=== PATIENT | male | born 1965 | race Caucasian/White ===

== ENCOUNTER 2018-07-19 14:22 | Emergency (ER) | payer OTHER ==
[~2018-07-19] VITALS: Ht 167.6 cm; Wt 72.6 kg
--- NOTE | 2018-07-19 15:59 | Diagnostic Imaging Report ---
EXAM: Right Lower Extremity Venous Duplex Ultrasound INDICATION: Evaluate for DVT COMPARISON: None TECHNIQUE: Thacker scale, color Doppler and spectral waveform analysis of the unilateral lower extremity deep venous system was performed. FINDINGS: Common Femoral vein: Fully compressible with normal spontaneous waveforms. Superficial Femoral vein vein: Fully compressible with normal spontaneous waveforms. Normal response to augmentation. Proximal Deep Femoral vein: Normal spontaneous waveforms. Popliteal: Fully compressible with normal spontaneous waveforms. Calf veins: The peroneal vein is not visualized. The posterior tibial veins are patent and demonstrate normal phasicity. IMPRESSION: No evidence of deep venous thrombosis in the right lower extremity. Signed by: Dr. Vivian Grant MD on 07/19/2018 3:56 PM
[2018-07-19] MEDS ORDERED: ALBUTEROL/IPRATROPIUM 3 ML NEB NEB ONE (16:30)
[2018-07-19] MEDS ORDERED: IBUPROFEN 100 MG/5 ML SUSP PO ONE (16:30)
--- OUTSIDE RECORDS SUMMARY | 2018-07-30 11:11 | XMS REPORT | Clinical Summary ---
Author Author [facility] Address Unknown Phone Unavailable Care Team Providers Care Osteopathic Physician Name Role Phone PCP Unavailable Allergies No Known Allergies Current Medications Prescription Sig. Disp. Refills Start End Date Status Date ascorbic acid, vitamin C, Take 1,000 mg by mouth Active (VITAMIN C) 1000 MG daily. tablet docusate sodium (COLACE) Take 100 mg by mouth Active 100 MG capsule daily. 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 Tear of lateral meniscus of right knee, current 07/15/2018 Encounters Date Type Specialty Care Team Description 07/15/2018 Hospital [facility] Complex tear of medial Encounter MD Jose meniscus of right knee as current injury, initial encounter (Primary Dx) 07/15/2018 Procedure Pass 07/15/2018 Surgery [facility] ARTHROSCOPY,KNEE MD Jose MENISCECTOMY 07/12/2018 Anesthesia Vamshi Ferris AA Event after 07/18/2017 Social History Tobacco Use Types Packs/Day Years Used Date Current Some Day Smoker Smokeless Tobacco: Never Used Comments: cigarettes/1 pack a month Alcohol Use Drinks/Week oz/Week Comments Yes occasionally Sex Assigned at Date Recorded Not on file Last Filed Vital Signs Vital Sign Reading Time Taken Blood Pressure 137/80 07/15/2018 9:45 AM CDT Pulse 70 07/15/2018 9:45 AM CDT Temperature 36.7 C (98.1 F) 07/15/2018 9:45 AM CDT Respiratory Rate 16 07/15/2018 9:45 AM CDT Oxygen Saturation 94% 07/15/2018 9:45 AM CDT Inhaled Oxygen - - Concentration Weight 72.6 kg (160 lb) 07/10/2018 2:23 PM CDT Height 167.6 cm (5' 6") 07/10/2018 2:23 PM CDT Body Mass Index 25.82 07/10/2018 2:23 PM CDT Plan of Treatment Not on file Procedures Procedure Name Priority Date/Time Associated Diagnosis Comments ARTHROSCOPY,KNEE 07/15/2018 Knee locking, right MENISCECTOMY 7:00 AM CDT Special Needs ASST07/12 conf w/Darius-tp s after 07/18/2017 Results * EKG-SCANNED (07/17/2018 2:11 PM) after 07/18/2017
== END 2018-07-19 16:30 | disposition home or self-care (01) ==
LOC: FSED 14:22
DX: M79.661 Pain in right lower leg (principal); F41.9 Anxiety disorder, unspecified
CPT/HCPCS: 93971; 99284